=== PATIENT | male | born 1935 | race Two or more races ===

== ENCOUNTER 2023-02-15 17:13 | Emergency (ER) | payer MEDICARE, OTHER ==
[~2023-02-15] VITALS: Ht 157.5 cm; Wt 63.5 kg
[2023-02-15 17:13] VITALS: BP 152/73; TEMP 98.2; O2SAT 98
== END 2023-02-15 20:54 | disposition left against medical advice (07) ==
LOC: ER 17:22
DX: R07.0 Pain in throat (principal); Z53.21 Procedure and treatment not carried out due to patient leaving prior to being seen by health care provider